=== PATIENT | female | born 1970 | race Caucasian/White ===

== ENCOUNTER 2016-10-24 18:26 | Emergency (ER) | payer OTHER ==
--- NOTE | 2016-10-24 20:04 | ED ANKLE/FOOT INJURY COMPLAINT ---
History of Present Illness General Chief Complaint: Lower Extremity Problems Stated Complaint: DISCOLORATION/PAIN TO RT PINKY TOE Source: patient Exam Limitations: no limitations Vital Signs & Intake/Output Vital Signs & Intake/Output Vital Signs Date Time Temp Pulse Resp B/P B/P Pulse O2 O2 Flow FiO2 Mean Ox Delivery Rate 10/25 2003 97.1 110 16 151/84 97 Room Air Allergies Coded Allergies: No Known Allergies (10/24/16) Reconcile Medications Bupropion HCl (Wellbutrin XL) 300 MG TAB.ER.24H 1 TAB PO QAM ANXIETY ( Reported) Cholecalciferol (Vitamin D3) (Vitamin D) (Unknown Strength) CAPSULE (Unknown Dose) PO DAILY SUPPLEMENT (Reported) Codeine Phosphate/Guaifenesi (Cheratussin AC Syrup) 10 MG-100 MG/5 ML LIQUID 5 ML PO QHS COUGH (Reported) Flaxseed Oil (Flax Seed Oil) (Unknown Strength) CAPSULE (Unknown Dose) PO DAILY SUPPLEMENT (Reported) Gemfibrozil 600 MG TABLET 1 TAB PO BID TRIGLYCERIDES (Reported) Insulin Aspart (Novolog) 100 UNIT/ML VIAL INSULIN PUMP (Reported) Lactulose 20 GRAM/30 ML SOLUTION 30 ML PO PRN CONSTIPATION (Reported) Linaclotide (Linzess) 145 MCG CAPSULE 1 CAP PO PRN CONSTIPATION (Reported) Lisinopril (Prinivil) 10 MG TABLET 1 TAB PO DAILY KIDNEYS (Reported) [place]-3 Fatty Acids ([place]-3) (Unknown Strength) CAPSULE (Unknown Dose) PO DAILY SUPPLEMENT (Reported) Oxycodone HCl/Acetaminophen (Percocet 5-325 MG Tablet) 5 MG-325 MG TABLET 1 TAB PO QPM PAIN (Reported) Triage Note: 46 YO FEMALE TO TRIAGE C/O BRUSING AND PAIN TO PINKY TOE ON R FOOT. DENIES INJURY. STATES IT HAS BEEN ONGOING FOR APPROX 1 MONTH. STATES PAIN IS KEEPING HER AWAKE AT NIGHT. CALLED MD WHO ADVISED HER TO COME HERE. PT HX OF DIABETES Triage Nurses Notes Reviewed? yes HPI: Pt presents for eval of a constant pain and purple coloration of the right 5th toe. pain began about 2 weeks ago and worsened 48 hours ago. yesterday pt noted purple discoloration of the toe. Patient denies any associated trauma. Nothing seems to improve symptoms. Past History Travel History Traveled to [place] past 21 day No Medical History Any Pertinent Medical History? see below for history Cardiovascular: hypertension Respiratory: PNA Endocrine: diabetes Surgical History Surgical History: non-contributory Psychosocial History What is your primary language Turkish Tobacco Use: Current Daily Use Daily Tobacco Use Amount/Type: =< 4 Cigarettes daily Family History Hx Contributory? No Review of Systems Review of Systems Constitutional: Reports: no symptoms. EENTM: Reports: no symptoms. Respiratory: Reports: no symptoms. Cardiovascular: Reports: no symptoms. GI: Reports: no symptoms. Genitourinary: Reports: no symptoms. Musculoskeletal: Reports: no symptoms. Skin: Reports: see HPI. Neurological/Psychological: Reports: no symptoms. Hematologic/Endocrine: Reports: no symptoms. Immunologic/Allergic: Reports: no symptoms. All Other Systems: Reviewed and Negative Physical Exam Physical Exam Leg/Knee/Thigh Left: see below Comments: Gen.: Well-nourished, well-developed, no acute respiratory distress. Head: Normocephalic, atraumatic. Eyes: Normal inspection bilaterally Ears: Normal inspection bilaterally Nose: Normal inspection, nasal cannula in place Throat/mouth : Moist mucosa Neck: Supple, full range of motion, no goiter Heart: Regular rate and rhythm Lungs: Quiet respirations Back: Normal range of motion Extremities: Right foot: Tenderness and purple discoloration of the tip and pad of the fifth, the toe is otherwise warm and sensate color in the non-ecchymotic areas. The remaining toes and foot are nontender with good color and sensation. Neurologic: Cranial nerves grossly intact, speech is clear Skin: warm and dry Psychiatric: Calm, cooperative, no apparent delusions or hallucinations Progress Differential Diagnosis: cellulitis, fracture, dislocation, sprain, contusion, ISCHEMIA, GANGRENE Plan of Care: Orders Procedure Date/time Status XRY-TOES, RIGHT 10/25 1999 Active Diagnostic Imaging: Discussed w/RAD: Radiology Read. Radiology Impression: PATIENT: GENIE ASENCIO PRESENT AGE: 46 PATIENT ACCOUNT NO: [id number] : 69 LOCATION: [facility] ORDERING PHYSICIAN: LUKAS FLAHERTY MD SERVICE DATE: 10/24/16 EXAM TYPE: RAD - XRY-TOES, RIGHT EXAMINATION: XR TOES, RIGHT CLINICAL INFORMATION: Purple discoloration of the distal right fifth toe COMPARISON: None TECHNIQUE: 3 views of the right toes were obtained. FINDINGS: No radiographic evidence of acute displaced fracture or subluxation. Soft tissue swelling is mild along the lateral aspect of the distal right foot. No radiopaque foreign bodies. Bipartite medial sesamoid bone. Oval sclerotic focus within the proximal phalanx of the first toe with sharp zone of transition is likely a bone island. Toe ring overlaps the proximal interphalangeal joint of the second toe. IMPRESSION: No radiographic evidence of acute displaced fracture or subluxation of the fifth toe. No radiopaque foreign body. Mild soft tissue swelling of the lateral aspect of the distal right foot. DICTATED BY: RAY ATKINSON MD DATE/TIME DICTATED:2043 [employer] SUPERINTENDENT:KENNEDY DATE/TIME TRANSCRIBED:10/24/162043 CONFIDENTIAL, DO NOT COPY WITHOUT APPROPRIATE AUTHORIZATION. <Electronically signed in Other Vendor System> SIGNED BY: RAY ATKINSON MD 10/24/162049 Comments: Procedure note: Patient's right fourth and fifth toes osmani taped with cast padding between. Patient's toes remained neurovascularly intact before and after splinting. In the absence of any visible trauma (aside from the ecchymoses) and fracture or dislocation on x-ray, I feel patient probably suffered a minor injury to the toe resulting in bruising. There is no indication of compromised flow to the toe or infectious process/gangrene. Patient takes Percocet only at night for rib pain secondary to a pneumonia. I instructed her that she needs to be on a more consistent dose for better pain control regarding her toe. She declined to do this in favor of taking Aleve, despite the fact that she has known renal insufficiency and sees a raise miner. She states that she has an appointment on Sunday with her raise miner and expects "that he will yell at me" [for taking Aleve]. Departure Departure Disposition: HOME OR SELF CARE Condition: Stable Clinical Impression Primary Impression: Contusion of toe of right foot Qualifiers: Encounter type: initial encounter Toe: lesser toe Damage to nail status: without damage Qualified Code: S90.121A - Contusion of right lesser toe( s) without damage to nail, initial encounter Referrals: SAIMA LIM MD (PCP/Family) Additional Instructions: Aleve 2 tablets [id number] strength twice daily as needed for pain. Follow-up with your primary care doctor in 24-48 hours for reevaluation of your toe. At this point there seems to be no indication of significant trauma, circulatory compromise or infection/gangrene. Please return if any concerns or sudden worsening. Please note that there might be incidental findings in your evaluation that are unrelated to the current emergency department visit. Please notify your primary care doctor about this emergency department visit in order to obtain and review all of the testing performed so that these incidental findings can be monitored as needed. If you had an x-ray performed, please understand that some fractures may not be seen on the initial set of x-rays. If your symptoms persist you might need a repeat set of x-rays to check for such a fracture. If you had a laceration evaluated, please understand that foreign bodies such as glass or wood may not be visible to the naked eye or on plain x-rays. If the wound becomes red, swollen, increasingly more painful or if there is any drainage from the wound, please have it reevaluated by a physician for the possibility of a retained foreign body. Thank you for choosing the [facility] Emergency Department for your care. It was a pleasure to serve you today. Lukas Flaherty M.D. [facility] Departure Forms: Customer Survey General Discharge Information
[2016-10-24] MEDS ORDERED: NOVOLOG100 UNIT/2 SC (20:31)
[2016-10-24] MEDS ORDERED: GEMFIBROZIL600 M1 PO (20:32)
[2016-10-24] MEDS ORDERED: PRINIVIL10 M1 PO (20:32)
[2016-10-24] MEDS ORDERED: WELLBUTRIN XL300 M2 PO (20:32)
[2016-10-24] MEDS ORDERED: CHERATUSSIN AC118 M1 PO (20:33)
[2016-10-24] MEDS ORDERED: VITAMIN D2000 UNIT PO (20:33)
[2016-10-24] MEDS ORDERED: PERCOCET 5-3251 EACH PO (20:33)
[2016-10-24] MEDS ORDERED: LINZESS145 MC1 PO (20:34)
[2016-10-24] MEDS ORDERED: OMEGA-31000 M1 PO (20:34)
[2016-10-24] MEDS ORDERED: FLAX SEED OIL1000 M2 PO (20:34)
[2016-10-24] MEDS ORDERED: LACTULOSE20 GM/30 M PO (20:35)
--- NOTE | 2016-10-24 20:50 | RADIOLOGY REPORT ---
EXAMINATION: XR TOES, RIGHT CLINICAL INFORMATION: Purple discoloration of the distal right fifth toe COMPARISON: None TECHNIQUE: 3 views of the right toes were obtained. FINDINGS: No radiographic evidence of acute displaced fracture or subluxation. Soft tissue swelling is mild along the lateral aspect of the distal right foot. No radiopaque foreign bodies. Bipartite medial sesamoid bone. Oval sclerotic focus within the proximal phalanx of the first toe with sharp zone of transition is likely a bone island. Toe ring overlaps the proximal interphalangeal joint of the second toe. IMPRESSION: No radiographic evidence of acute displaced fracture or subluxation of the fifth toe. No radiopaque foreign body. Mild soft tissue swelling of the lateral aspect of the distal right foot.
[2016-10-24 21:51] VITALS: BP 146/74
== END 2016-10-24 21:51 ==
LOC: ERH 18:26
DX: S90.121A Contusion of right lesser toe(s) without damage to nail, initial encounter (principal); X58.XXXA Exposure to other specified factors, initial encounter; Y93.9 Activity, unspecified; Y92.9 Unspecified place or not applicable
CPT/HCPCS: 73660-RT